=== PATIENT | male | born 1960 | race Two or more races ===

== ENCOUNTER 2019-07-16 07:42 | Day surgery (SDC) | payer OTHER ==
--- NOTE | 2018-09-25 07:45 | Operative Note - PDOC ---
Operative Note Operative Note Pre-op Diagnosis: left knee internal derangement Procedure: see op report Post-op Diagnosis: same as pre-op plus Operative Findings: consistent w/pre-op dx studies Anesthesia: MAC Specimen: none Complications: none Condition: stable Estimated Blood Loss: none Implant(s) used?: No Poli Silva MD Sep 25, 2018 07:45
--- NOTE | 2018-09-25 07:45 | Pre-Procedure Note/Attestation ---
Pre-Procedure Note/Attestation Complete Prior to Procedure Planned Procedure: left Procedure Narrative: knee diagnostic arthroscopy, possible synovetomy, possible menisectomy Indications for Procedure Pre-Operative Diagnosis: left knee internal derangement Attestation I attest that I discussed the nature of the procedure; its benefits; risks and complications; and alternatives (and the risks and benefits of such alternatives ), prior to the procedure, with the patient (or the patient's legal technology sales representative). I attest that, if there was a reasonable possibility of needing a blood transfusion, the patient (or the patient's legal technology sales representative) was given the [facility] standardized written summary, pursuant to the Gildardo Clendenin Blood Safety Act ([place] Health and Safety Code # 1645, as amended). I attest that I re-evaluated the patient just prior to the surgery and that there has been no change in the patient's H&P, except as documented below: Poli Silva MD Sep 25, 2018 07:45
[2019-07-16] VITALS (10 sets, daily range): BP systolic 127–156; BP diastolic 64–81
[~2019-07-16] VITALS: Ht 175.3 cm; Wt 122.5 kg
--- NOTE | 2019-07-16 07:16 | Pre-Procedure Note/Attestation ---
Pre-Procedure Note/Attestation Complete Prior to Procedure Planned Procedure: left Procedure Narrative: knee arthroscopy, possible synovectomy, chondroplasty, menisectomy Indications for Procedure Pre-Operative Diagnosis: left knee internal derangement Attestation I attest that I discussed the nature of the procedure; its benefits; risks and complications; and alternatives (and the risks and benefits of such alternatives ), prior to the procedure, with the patient (or the patient's legal sales representative). I attest that, if there was a reasonable possibility of needing a blood transfusion, the patient (or the patient's legal sales representative) was given the [facility] standardized written summary, pursuant to the Gildardo Lisa Blood Safety Act ([place] Health and Safety Code # 1645, as amended). I attest that I re-evaluated the patient just prior to the surgery and that there has been no change in the patient's H&P, except as documented below: Poli Silva MD Jul 16, 2019 07:16
--- NOTE | 2019-07-16 07:16 | Operative Note - PDOC ---
Operative Note Operative Note Pre-op Diagnosis: left knee internal derangement Procedure: see op report Post-op Diagnosis: same as pre-op plus Operative Findings: consistent w/pre-op dx studies Anesthesia: MAC Specimen: none Complications: none Condition: stable Estimated Blood Loss: none Implant(s) used?: No Poli Silva MD Jul 16, 2019 07:16
[~2019-07-16 07:42] MED LIST: ATORVASTATIN CA40 MG ORAL; D5 1/2NS 1,000 ML IV SCH; GLIPIZIDE5 MG ORAL; HUMALOG 75/255 UNIT1 SUBQ; HYDROcodone/Acetamin 5/325 tab ORAL PRN; HYDROmorphone 1mg/ml Carpuject SUBQ PRN; LISINOPRIL2.5 MG ORAL; METFORMIN HCL1000 M1 ORAL; Tylenol #3 tab (300mg/30mg) ORAL PRN; ceFAZolin 1gm IVPB IVPB ONE; celeBREX 200mg Cap **SURGERY PATIENTS ONLY ORAL ONE; oxyCONTIN 20mg tab ORAL ONE
[2019-07-16] MEDS ORDERED: celeBREX 200mg Cap **SURGERY PATIENTS ONLY ORAL ONE (08:40)
[2019-07-16] MEDS ORDERED: oxyCONTIN 20mg tab ORAL ONE (08:40)
[2019-07-16] MEDS ORDERED: Kenalog-40 1ml Vial ONE (09:58)
[2019-07-16] MEDS ORDERED: Ketorolac 30mg Inj ONE (09:58)
[2019-07-16] MEDS ORDERED: Bupivacaine 0.25% Inj 30ml INJ ONE (09:59)
[2019-07-16] MEDS ORDERED: Lidocaine 1% 10mg/ml/Epi 0.005mg/ml 30ml vial INJ ONE (09:59)
[2019-07-16] MEDS ORDERED: Duramorph PF 5mg/10ml amp ONE (09:59)
[2019-07-16] MEDS ORDERED: NS Irrig 1000ml ONE (10:00)
[2019-07-16] MEDS ORDERED: Midazolam 2mg/2ml Inj ONE (10:00)
[2019-07-16] MEDS ORDERED: Sterile Water Irrig 1000ml IRRIG ONE (10:00)
[2019-07-16] MEDS ORDERED: LR 1000ml ONE (10:00)
[2019-07-16] MEDS ORDERED: fentaNYL 100 mcg/2 mL IV ONE (10:09)
[2019-07-16] MEDS ORDERED: Propofol 200mg/20ml IV ONE (10:10)
[2019-07-16] MEDS ORDERED: Duramorph PF 5mg/10ml amp IV ONE (10:32)
[2019-07-16] MEDS ORDERED: LR 1000ml 1,000 ML IVLG SCH (10:48)
--- NOTE | 2019-07-16 10:48 | Anethesia Preoperative Eval ---
Anesthesia Pre-op PMH/ROS General Date of Evaluation: Jul 16, 2019 Time of Evaluation: 10:08 Anesthesiologist: Sandy ASA Score: ASA 3 Mallampati Score Class I : Soft palate, uvula, fauces, pillars visible Class II: Soft palate, uvula, fauces visible Class III: Soft palate, base of uvula visible Class IV: Only hard plate visible Mallampati Classification: Class III Surgeon: Ricardo Diagnosis: L knee pain Surgical Procedure: L knee scope Anesthesia History: none Family History: no anesthesia problems Allergies: Coded Allergies: No Known Allergies (Unverified , 07/15/19) Medications: see eMAR Patient NPO?: Yes Past Medical History Cardiovascular: Reports: HTN; Denies: CAD, [place], valve dz, arrhythmia, other Pulmonary: Reports: FARA; Denies: asthma, COPD, other Gastrointestinal/Genitourinary: Reports: GERD; Denies: CRI, ESRD, other Neurologic/Psychiatric: Denies: dementia, CVA, depression/anxiety, TIA, other Endocrine: Reports: DM; Denies: hypothyroidism, steroids, other HEENT: Denies: cataract (L), cataract (R), glaucoma, [place] (L), [place] (R), other Hematology/Immune: Denies: anemia, DVT, bleeding disorder, other Musculoskeletal/Integumentary: Reports: OA; Denies: RA, DJD, DDD, edema, other Other: obesity PMH Narrative: as above PSxH Narrative: Shoulder scope Anesthesia Pre-op Phys. Exam Physician Exam Last Vital Signs Date Time Temp Pulse Resp B/P (MAP) Pulse Ox O2 Delivery O2 Flow Rate FiO2 07/16/19 08:31 Room Air 07/16/19 08:20 98.4 69 18 150/77 96 Constitutional: NAD Neurologic: CN 2-12 intact Cardiovascular: RRR, no M/R/G Respiratory: CTA Gastrointestinal: other - obesity Airway Exam Mallampati Score: Class III MO: full Neck: short ROM: limited Teeth: intact Dentures: no upper, no lower Anesthesia Pre-op A/P Labs see chart Accucheck 131 Studies Pre-op Studies: EKG - Sr Risk Assessment & Plan Assessment: ASA 3 Plan: GA with LMA Status Change Before Surgery: No Pre-Antibiotics Drug: Ancef 2gr. Given Within 1 Hr of Incision: Yes Time Given: 10:36 Fabian Delgado MD Jul 16, 2019 10:48
[2019-07-16] MEDS ORDERED: Ketorolac 30mg Inj IV PRN (11:00)
[2019-07-16] MEDS ORDERED: Meperidine 25mg/0.5ml Inj (FOR RIGORS ONLY) IV PRN (11:00)
--- NOTE | 2019-07-16 11:14 | Immediate Post-Op Evaluation ---
Immediate Post-Op Evalulation Immediate Post-Op Evalulation Procedure: L knee arthroscopy Date of Evaluation: Jul 16, 2019 Time of Evaluation: 11:13 IV Fluids: 600 Blood Products: nne Estimated Blood Loss: min Urinary Output: none Blood Pressure Systolic: 156 Blood Pressure Diastolic: 78 Pulse Rate: 64 Respiratory Rate: 20 O2 Sat by Pulse Oximetry: 98 Temperature (Fahrenheit): 97.5 Pain Score (1-10): 1 Nausea: No Vomiting: No Complications none Patient Status: awake, patent, none Hydration Status: adequate Fabian Delgado MD Jul 16, 2019 11:14
--- NOTE | 2019-07-16 14:04 | 48 Hour Post Anesthesia Eval ---
Post Anesthesia Evaluation Procedure: L knee arthroscopy Date of Evaluation: Jul 16, 2019 Time of Evaluation: 12:25 Blood Pressure Systolic: 136 0: 72 Pulse Rate: 68 Respiratory Rate: 20 Temperature (Fahrenheit): 97.6 O2 Sat by Pulse Oximetry: 98 Airway: patent Nausea: No Vomiting: No Pain Intensity: 2 Hydration Status: adequate Cardiopulmonary Status: stable Mental Status/LOC: patient returned to baseline Follow-up Care/Observations: n/a Post-Anesthesia Complications: none Follow-up care needed: ready to discharge Fabian Delgado MD Jul 16, 2019 14:04
--- NOTE | 2019-07-16 16:15 | Operative Note - Dictated ---
DATE OF OPERATION: 07/16/2019 PREOPERATIVE DIAGNOSIS: Left knee ACL sprain. POSTOPERATIVE DIAGNOSES: 1. Left knee posterior horn and medial meniscus tear. 2. Left knee ACL sprain. 3. Hypertrophic ligamentum mucosum/plica. PROCEDURE: 1. Left knee diagnostic arthroscopy and partial medial meniscectomy. 2. Synovectomy medial and lateral patellofemoral compartment. SURGEON: Poli Silva M.D. ANESTHESIA: MAC with local. INDICATION FOR PROCEDURE: The patient is a pleasant gentleman who has had significant injuries to his left knee. The MRI showed concerns for possible ACL tear. He had continued pain and instability, elected to undergo left knee diagnostic arthroscopy with possible meniscectomy, synovectomy, chondroplasty. At the time of surgery, the ACL will be evaluated. If it is noted to be disrupted, then ACL reconstruction may also be indicated. All questions were addressed. DESCRIPTION OF PROCEDURE: After informed consent was obtained, the patient was brought to the operating room. The patient was placed under general anesthesia. Left leg was prepped and draped in sterile manner. Time-out was performed. Ancef was administered. Inferolateral stab incision was then made. Trocar was introduced into the knee joint. There was some hypertrophic synovial tissue in the patellofemoral compartment. There was some plica. Medial compartment was entered. Medial working portal was established. Synovectomy of the anterior compartment, anterior portion of medial compartment, intercondylar notch, and lateral compartment was performed. Medial compartment was entered. There was some fraying of the inferior aspect of the posterior horn and medial meniscus. Partial meniscectomy of the anterior meniscus tear was performed. Once that was done, the ACL was probed and noted to be intact consistent with a partial tear. The lateral compartment was entered and free of any meniscal chondral damage. The camera was repositioned in the patellofemoral compartment and excision of the medial plica and completion of the synovectomy and excision of the fat pad was completed. Once this was done, the instruments were removed. Portal sites were closed with 3-0 Monocryl sutures. ESTIMATED BLOOD LOSS: None. COMPLICATIONS: None. SPECIMENS: None. IMPLANTS: None. Poli Silva M.D. DR: PRO JOB#: [id number] CC:
== END 2019-07-16 12:20 | disposition home or self-care (01) ==
LOC: SUR 07:42
DX: S83.242A Other tear of medial meniscus, current injury, left knee, initial encounter (principal); S83.512A Sprain of anterior cruciate ligament of left knee, initial encounter; X58.XXXA Exposure to other specified factors, initial encounter; Y92.9 Unspecified place or not applicable; M23.8X2 Other internal derangements of left knee; I10 Essential (primary) hypertension; K21.9 Gastro-esophageal reflux disease without esophagitis; G47.33 Obstructive sleep apnea (adult) (pediatric); E11.9 Type 2 diabetes mellitus without complications; M19.90 Unspecified osteoarthritis, unspecified site; E66.9 Obesity, unspecified; Z68.39 Body mass index [BMI] 39.0-39.9, adult
CPT/HCPCS: 29876; 29881; 82962; J0690; J1885; J2250; J2704; J3010; J3301; J3490; J7120; 94003; 94150

== ENCOUNTER 2019-10-08 05:44 | Day surgery (SDC) | payer OTHER ==
[~2019-10-08] VITALS: Ht 175.3 cm; Wt 120.2 kg
[2019-10-08] VITALS (8 sets, daily range): BP systolic 107–150; BP diastolic 61–84
[~2019-10-08 05:44] MED LIST changes: -D5 1/2NS 1,000 ML IV SCH; +HUMULIN 70100 UNIT/2 SUBQ; -HYDROcodone/Acetamin 5/325 tab ORAL PRN; -HYDROmorphone 1mg/ml Carpuject SUBQ PRN; -Tylenol #3 tab (300mg/30mg) ORAL PRN; -ceFAZolin 1gm IVPB IVPB ONE; -celeBREX 200mg Cap **SURGERY PATIENTS ONLY ORAL ONE; -oxyCONTIN 20mg tab ORAL ONE
[2019-10-08] MEDS ORDERED: LR 1000ml ONE (05:45)
[2019-10-08] MEDS ORDERED: NS Irrig 2000ml IRRIG ONE ×2 (05:45→07:45)
[2019-10-08] MEDS ORDERED: celeBREX 200mg Cap **SURGERY PATIENTS ONLY ORAL ONE (06:00)
[2019-10-08] MEDS ORDERED: oxyCONTIN 20mg tab ORAL ONE (06:00)
[2019-10-08] MEDS ORDERED: ceFAZolin 1gm IVPB IVPB ONE ×2 (06:00)
[2019-10-08] MEDS ORDERED: Sodium Chloride 10ml vial INJ ONE ×2 (06:57→09:10)
[2019-10-08] MEDS ORDERED: Propofol 200mg/20ml IV ONE ×2 (06:57→09:10)
[2019-10-08] MEDS ORDERED: Lidocaine 1% MPF 10mg/ml 5ml ONE ×2 (06:57→09:10)
[2019-10-08] MEDS ORDERED: LR 1000ml 1,000 ML IVLG SCH (07:06)
--- NOTE | 2019-10-08 07:06 | Anethesia Preoperative Eval ---
Anesthesia Pre-op PMH/ROS General Date of Evaluation: October 08, 2019 Time of Evaluation: 07:31 Anesthesiologist: Cassandra ASA Score: ASA 3 Mallampati Score Class I : Soft palate, uvula, fauces, pillars visible Class II: Soft palate, uvula, fauces visible Class III: Soft palate, base of uvula visible Class IV: Only hard plate visible Mallampati Classification: Class III Surgeon: Ricardo Diagnosis: R Knee Pain Surgical Procedure: R Knee Arthroscopy Anesthesia History: none Family History: no anesthesia problems Allergies: Coded Allergies: No Known Allergies (Unverified , 07/15/19) Medications: see eMAR Patient NPO?: Yes Past Medical History Cardiovascular: Reports: HTN Gastrointestinal/Genitourinary: Reports: GERD Endocrine: Reports: DM Musculoskeletal/Integumentary: Reports: RA Other: obesity - Morbid BMI 42 Anesthesia Pre-op Phys. Exam Physician Exam Last Vital Signs Date Time Temp Pulse Resp B/P (MAP) Pulse Ox O2 Delivery O2 Flow Rate FiO2 10/08/19 06:16 Room Air 10/08/19 06:08 98.2 77 18 150/84 95 Constitutional: NAD Neurologic: CN 2-12 intact Cardiovascular: RRR Respiratory: CTA Gastrointestinal: S/NT/ND Airway Exam Mallampati Score: Class III MO: limited ROM: limited Teeth: missing, intact Anesthesia Pre-op A/P Risk Assessment & Plan Assessment: ASA 3 Plan: GA, SED Status Change Before Surgery: No Pre-Antibiotics Dru Grams Ancef IV Given Within 1 Hr of Incision: Yes Time Given: 07:56 Emmett Trujillo MD October 08, 2019 07:06
[2019-10-08] MEDS ORDERED: EPINEPHrine 1mg/1ml Amp ONE (07:07)
[2019-10-08] MEDS ORDERED: Kenalog-40 1ml Vial ONE (07:07)
[2019-10-08] MEDS ORDERED: Lidocaine 1% 10mg/ml/Epi 0.005mg/ml 30ml vial INJ ONE (07:08)
[2019-10-08] MEDS ORDERED: Bupivacaine 0.25% Inj 30ml INJ ONE (07:08)
[2019-10-08] MEDS ORDERED: Morphine Sulfate PF 10 ML ONE (07:08)
--- NOTE | 2019-10-08 07:08 | Immediate Post-Op Evaluation ---
Immediate Post-Op Evalulation Immediate Post-Op Evalulation Procedure: R Knee Arthroscopy Date of Evaluation: October 08, 2019 Time of Evaluation: 08:54 IV Fluids: 700 LR Blood Products: 0 Estimated Blood Loss: 3 Urinary Output: 0 Blood Pressure Systolic: 130 Blood Pressure Diastolic: 74 Pulse Rate: 71 Respiratory Rate: 16 O2 Sat by Pulse Oximetry: 94 Temperature (Fahrenheit): 99.4 Pain Score (1-10): 2 Nausea: No Vomiting: No Complications 0 Patient Status: awake, reacts, patent, none Hydration Status: adequate Dru Grams Ancef IV Given Within 1 Hr of Incision: Yes Time Given: 07:56 Emmett Trujillo MD October 08, 2019 07:08
--- NOTE | 2019-10-08 07:08 | 48 Hour Post Anesthesia Eval ---
Post Anesthesia Evaluation Procedure: R Knee Arthroscopy Date of Evaluation: October 08, 2019 Time of Evaluation: 11:12 Blood Pressure Systolic: 142 0: 83 Pulse Rate: 74 Respiratory Rate: 18 Temperature (Fahrenheit): 98.7 O2 Sat by Pulse Oximetry: 96 Airway: patent Nausea: No Vomiting: No Pain Intensity: 2 Hydration Status: adequate Cardiopulmonary Status: Stable Mental Status/LOC: patient returned to baseline Follow-up Care/Observations: 0 Post-Anesthesia Complications: 0 Follow-up care needed: ready to discharge Emmett Trujillo MD October 08, 2019 07:08
[2019-10-08] MEDS ORDERED: Ketamine 500mg/10ml vial ONE (07:14)
[2019-10-08] MEDS ORDERED: fentaNYL 100 mcg/2 mL IV PRN (07:15)
[2019-10-08] MEDS ORDERED: Hydromorphone 0.5mg/0.5ml inj IVP PRN (07:15)
[2019-10-08] MEDS ORDERED: Ketorolac 30mg Inj IV PRN ×2 (07:15)
[2019-10-08] MEDS ORDERED: LORazepam Inj 2mg/ml 1ml IV PRN (07:15)
[2019-10-08] MEDS ORDERED: HYDROcodone/Acetamin 5/325 tab ORAL PRN ×2 (07:15→08:00)
[2019-10-08] MEDS ORDERED: DiphenhydrAMINE 50mg/ml Inj IVP PRN (07:15)
[2019-10-08] MEDS ORDERED: Meperidine 25mg/0.5ml Inj (FOR RIGORS ONLY) IV PRN (07:15)
[2019-10-08] MEDS ORDERED: Midazolam 2mg/2ml Inj IVP PRN (07:15)
[2019-10-08] MEDS ORDERED: Acetaminophen (Non formulary) 100 ML IV ONE (07:15)
[2019-10-08] MEDS ORDERED: Atropine Sulfate 0.4mg/ml inj IVP PRN (07:15)
[2019-10-08] MEDS ORDERED: HYDROcodone/Acetamin 7.5/325 tab ORAL PRN (07:15)
[2019-10-08] MEDS ORDERED: oxyCODONE HCL/Acetaminophen 5/325mg ORAL PRN (07:15)
[2019-10-08] MEDS ORDERED: Labetalol 5mg/ml 20ml vial IV PRN (07:15)
[2019-10-08] MEDS ORDERED: Metoclopramide 10mg/2ml Inj IVP PRN (07:15)
--- NOTE | 2019-10-08 07:51 | Operative Note - PDOC ---
Operative Note Operative Note Pre-op Diagnosis: right knee internal derangement Procedure: see op report Post-op Diagnosis: same as pre-op plus Operative Findings: consistent w/pre-op dx studies Anesthesia: MAC Specimen: none Complications: none Condition: stable Estimated Blood Loss: none Implant(s) used?: No Poli Silva MD October 08, 2019 07:51
--- NOTE | 2019-10-08 07:51 | Pre-Procedure Note/Attestation ---
Pre-Procedure Note/Attestation Complete Prior to Procedure Planned Procedure: right Procedure Narrative: knee diagnostic arthroscopy, possible synovectomy, chondroplasty Indications for Procedure Pre-Operative Diagnosis: right knee internal derangement Attestation I attest that I discussed the nature of the procedure; its benefits; risks and complications; and alternatives (and the risks and benefits of such alternatives ), prior to the procedure, with the patient (or the patient's legal small business representative). I attest that, if there was a reasonable possibility of needing a blood transfusion, the patient (or the patient's legal small business representative) was given the [facility] standardized written summary, pursuant to the Gildardo Lisa Blood Safety Act ([place] Health and Safety Code # 1645, as amended). I attest that I re-evaluated the patient just prior to the surgery and that there has been no change in the patient's H&P, except as documented below: Poli Silva MD October 08, 2019 07:51
[2019-10-08] MEDS ORDERED: Tylenol #3 tab (300mg/30mg) ORAL PRN (08:00)
[2019-10-08] MEDS ORDERED: HYDROmorphone 1mg/ml Carpuject SUBQ PRN (08:00)
[2019-10-08] MEDS ORDERED: D5 1/2NS 1,000 ML IV SCH (08:00)
[2019-10-08] MEDS ORDERED: Ketorolac 30mg Inj IM ONE (08:20)
[2019-10-08] MEDS ORDERED: Duramorph PF 5mg/10ml amp EPIDUR ONE (08:20)
[2019-10-08] MEDS ORDERED: Flumazenil 0.1mg/ml 5ml Inj IV ONE (08:22)
--- NOTE | 2019-10-08 20:00 | Operative Note - Dictated ---
DATE OF OPERATION: 10/08/2019 PREOPERATIVE DIAGNOSIS: Right knee ACL sprain with secondary hypertrophic synovial tissue versus chondral damage. POSTOPERATIVE DIAGNOSES: 1. Right knee hypertrophic synovial tissue with asymptomatic medial plica. 2. Right knee grade 2 chondral damage to medial femoral condyle. PROCEDURES: 1. Right knee diagnostic arthroscopy, synovectomy, medial and lateral patellofemoral compartment including excision of medial plica. 2. Chondroplasty of medial femoral condyle. SURGEON: Poli Silva MD. ANESTHESIA: Spinal with local. INDICATION FOR PROCEDURE: The patient is a pleasant gentleman who has got progressive right knee pain and continued pain. He did really well with left knee arthroscopic procedure. Therefore, we elected to proceed with right knee diagnostic arthroscopy and right knee chondroplasty. Risks, limitations, expectations, and complications of the procedure were discussed in detail. All questions were addressed. DESCRIPTION OF PROCEDURE: After informed consent was obtained, the patient was brought to the operating room. The patient was placed under monitored anesthesia control. Right leg was prepped and draped in sterile manner. Time-out was performed. Ancef was administered. An inferolateral stab incision was made. Trocar was introduced into the patellofemoral compartment. The hypertrophic synovial tissue there was medial plica. Medial compartment was entered. Medial working portal was established. Synovectomy of the anterior portion of the medial compartment, intercondylar notch, and lateral compartment was completed to better visualize the knee. Medial compartment was entered, meniscus was probed, and noted to be intact. There was grade 2 chondral damage of medial femoral condyle with a chondral flap. Gentle chondroplasty was performed. The ACL was probed. The remaining debrided to prevent further impingement. Lateral compartment was entered and free of meniscal chondral damage. Camera was then repositioned in the patellofemoral compartment. Synovectomy and excision of medial plica was completed. The patient was awoken and taken to recovery room with stable vital signs. ESTIMATED BLOOD LOSS: None. COMPLICATIONS: None. SPECIMENS: None. IMPLANTS: None. Poli Silva M.D. DR: REBEKAH JOB#: [id number] CC:
== END 2019-10-08 10:10 | disposition home or self-care (01) ==
LOC: SUR 05:44
DX: M67.261 Synovial hypertrophy, not elsewhere classified, right lower leg (principal); M94.8X6 Other specified disorders of cartilage, lower leg; I10 Essential (primary) hypertension; K21.9 Gastro-esophageal reflux disease without esophagitis; E11.9 Type 2 diabetes mellitus without complications; M06.9 Rheumatoid arthritis, unspecified; E66.01 Morbid (severe) obesity due to excess calories; Z68.39 Body mass index [BMI] 39.0-39.9, adult
CPT/HCPCS: 29876; 29999; 94003; J0131; J0171; J0690; J1885; J2250; J2405; J2704; J3301; J3490; J7120; 94150